=== PATIENT | male | born 1975 | race African-American/Black ===

== ENCOUNTER 2019-01-23 01:39 | Emergency (ER) | payer SELFPAY ==
[~2019-01-23] VITALS: Ht 167.6 cm; Wt 112.0 kg
[2019-01-23] MEDS ORDERED: DIPHENHYDRAMINE 50MG/ML VIAL IV ONE (02:00)
[2019-01-23] MEDS ORDERED: EPINEPHRINE 1:1000 1 MG/ML AMP INJ ONE (02:00)
[2019-01-23] MEDS ORDERED: METHYLPREDNISOLONE SOD SUCC 125 MG/2 ML VIAL IV ONE (02:00)
[2019-01-23] MEDS ORDERED: FAMOTIDINE 20MG/2ML VIAL IV ONE (02:00)
[2019-01-23 04:54] VITALS: BP 110/70
== END 2019-01-23 04:54 | disposition home or self-care (01) ==
LOC: ER 04:52
DX: T78.3XXA Angioneurotic edema, initial encounter (principal); I10 Essential (primary) hypertension; F12.10 Cannabis abuse, uncomplicated; Z88.8 Allergy status to other drugs, medicaments and biological substances
CPT/HCPCS: 96374; 96375; 99283; J1200; J2930; J3490; Z7610